=== PATIENT | male | born 1990 | race Caucasian/White ===

== ENCOUNTER 2016-08-18 13:51 | Outpatient (CLI) ==
[2015-01-27 17:55] VITALS: BMI 41.3
[2016-08-18 17:20] LABS: BASOPHILS # (AUTO) 0.1 K/uL (0-0.2); BASOPHILS % (AUTO) 0.7 % (0.0-3.0); EOSINOPHILS # (AUTO) 0.2 K/ul (0.0-0.7); EOSINOPHILS % (AUTO) 2.1 % (0.0-7.0); HEMOGLOBIN 15.4 g/dl (14.0-18.0); IMMATURE GRANULOCYTE % (AUTO) 0.6 % (0.0-5.0); LYMPHOCYTES # (AUTO) 2.2 K/uL (0.60-3.4); LYMPHOCYTES % (AUTO) 24.7 (10.0-50.0); MEAN CORPUSCULAR HEMOGLOBIN 30.3 pg (27.0-31.0); MEAN CORPUSCULAR HGB CONC 33.5 (31.8-35.4); MEAN CORPUSCULAR VOLUME 90.6 fl (80.0-94.0); MONOCYTES # (AUTO) 0.5 K/uL (0.4-2.0); MONOCYTES % (AUTO) 5.3 (0-10); NEUTROPHILS # (AUTO) 6.1 K/ul (2.0-6.9); NEUTROPHILS % (AUTO) 66.6; PLATELET COUNT 231 10^3/uL (140-440); RED BLOOD COUNT 5.08 10^6/ul (4.70-6.10); WHITE BLOOD COUNT 9.08 K/ul (4.2-10.2)
[2016-08-18 17:42] LABS: ALBUMIN 3.9 g/dL (3.4-5.0); ALBUMIN/GLOBULIN RATIO 0.91; ANION GAP 14.4; BILIRUBIN,TOTAL 0.56 mg/dL (0.00-1.20); BUN/CREATININE RATIO 14.45; CALCIUM 9.8 mg/dL (8.2-10.2); CHOL/HDL RATIO 5.2 (4.5-6.4); CREATININE 0.83 mg/dL (0.60-1.10); POTASSIUM 4.4 mmol/L (3.5-5.1); TOTAL PROTEIN 8.2 g/dL (6.4-8.2)
== END 2016-08-18 13:52 | disposition home or self-care (01) ==
LOC: CAR 13:51
PROVIDERS: ATTEND Nurse Practitioner Family
DX: I10 Essential (primary) hypertension (principal); R07.89 Other chest pain; F41.8 Other specified anxiety disorders; J45.909 Unspecified asthma, uncomplicated; F31.9 Bipolar disorder, unspecified
CPT/HCPCS: 36415; 80053; 80061; 85025; 93005; 93010

== ENCOUNTER 2016-09-06 00:58 | Emergency (ER) ==
[2016-09-06 01:16] VITALS: BP 117/82; TEMP 99.3; BMI 42.0
[2016-09-06] MEDS ORDERED: DUONEB NEB STA (01:44)
[2016-09-06] MEDS ORDERED: SOLU-MEDROL 125 MG IVP STA (01:44)
--- NOTE | 2016-09-06 01:52 | ED.PDOC ---
General ED Provider: Dr. DARIEN MISHRA Chief Complaint: Shortness of Air Stated Complaint: Coughing, congested, shortness of breath. brought by EMT Time Seen by Physician: 01:53 Mode of Arrival: Walk-In Information Source: Patient Primary Care Provider: DINORA MOCTEZUMA Nursing and Triage Documentation Reviewed and Agree: Yes Respiratory Complaint Exam - Asthma Complaint/Exam Symptoms Are: Still present Timing: Intermittent Initial Severity: Severe Current Severity: Moderate Character: Reports: Wheezing, Non-productive cough Aggravating: Reports: Weather change, URI Alleviating: Reports: None Associated Signs and Symptoms: Reports: SOA, Chest pain, URI, Rapid breathing. Denies: Fever, Edema, Calf pain, Sinus infection, Labored breathing Related History: Reports: Similar episode Related Surgical History: Reports: None Status Asthmaticus Risk Factors: Reports: None Current Asthma Medication Usage: No Recent Antibiotics: No Respiratory Distress: None Accessory Muscle Use: No Retractions: Not Present Diminished Breath Sounds: Yes Prolonged Expiratory Phase: No Unable to Speak Full Sentences: No Fatigue Present: No Differential Diagnoses: Acute Asthma, COPD Exacerbation, Pneumonia Review of Systems - Review Of Systems Constitutional: Reports: Malaise, Weakness Eyes: Reports: No symptoms Ears, Nose, Mouth, Throat: Reports: No symptoms Respiratory: Reports: Cough, Short of air Cardiac: Reports: Chest pain GI: Reports: No symptoms : Reports: No symptoms Musculoskeletal: Reports: No symptoms Skin: Reports: No symptoms Neurological: Reports: No symptoms Endocrine: Reports: No symptoms Hematologic/Lymphatic: Reports: No symptoms All Other Systems: Reviewed and Negative Past Medical History - Past Medical History Previously Healthy: Yes Endocrine: Reports: None Cardiovascular: Reports: None Respiratory: Reports: Asthma Hematological: Reports: None Gastrointestinal: Reports: None Genitourinary: Reports: None Neuro/Psych: Reports: Depression Musculoskeletal: Reports: None Cancer: Reports: None - Surgical History General Surgical History: Reports: None - Family History Family History: Reports: None - Social History Smoking Status: Former smoker Hx Substance Use: No Alcohol Screening: None - Immunizations Tetanus Shot up to Date: No Physical Exam - Physical Exam Appearance: Ill-appearing, Obese Ill-appearing: Mild Eyes: EOMI ENT: Ears normal, Nose normal, Oropharynx normal Respiratory: Airway patent, Breath sounds clear, Breath sounds equal, Respirations nonlabored Cardiovascular: RRR, Pulses normal, No rub, No murmur GI/: Soft, Nontender, No masses, Bowel sounds normal, No Organomegaly Musculoskeletal: Normal strength, ROM intact, No edema, No calf tenderness Skin: Warm, Dry, Normal color Neurological: Sensation intact, Motor intact, Reflexes intact, Cranial nerves intact, Alert, Oriented Psychiatric: Affect appropriate, Mood appropriate Critical Care Note - Critical Care Note Total Time (mins): 0 Course - Course Hematology/Chemistry: 09/06/16 02:05 09/06/16 02:05 Orders, Labs, Meds: Lab Review 09/06/16 02:05 WBC 11.50 H RBC 5.01 Hgb 15.3 Hct 43.6 MCV 87.0 MCH 30.5 MCHC 35.1 RDW Coeff of Naga 14.1 Plt Count 223 Immature Gran % (Auto) 0.6 Neut % (Auto) 70.6 Lymph % (Auto) 21.7 Bremer % (Auto) 5.1 Eos % (Auto) 1.5 Baso % (Auto) 0.5 Immature Gran # (Auto) 0.1 Neut # 8.1 H Lymph # 2.5 Bremer # 0.6 Eos # 0.2 Baso # 0.1 D-Dimer (Manual) 194.00 Sodium 138 Potassium 3.7 Chloride 104 Carbon Dioxide 23 Anion Gap 14.7 BUN 19 H Creatinine 1.17 H Estimated GFR (MDRD) 74.00 BUN/Creatinine Ratio 16.23 Glucose 126 H Calcium 9.8 Total Bilirubin 0.39 AST 25 ALT 47 Alkaline Phosphatase 105 Total Creatine Kinase 45 Troponin I < 0.0100 Total Protein 8.4 H Albumin 4.0 Globulin 4.4 Albumin/Globulin Ratio 0.91 Orders Category Date Time Status NEBULIZER TREATMENT Stat CARDIO 09/06/16 01:45 Completed CBC W/ AUTO DIFF Stat LAB 09/06/16 02:05 Completed COMPREHENSIVE METABOLIC PANEL Stat LAB 09/06/16 02:05 Completed CREATINE KINASE Stat LAB 09/06/16 02:05 Completed D-DIMER Stat LAB 09/06/16 02:05 Completed TROPONIN I Stat LAB 09/06/16 02:05 Completed Cephalexin [Keflex] MEDS 09/06/16 01:58 Discontinued 500 mg PO ONCE STA Ipratropium/Albuterol Neb [Duoneb] MEDS 09/06/16 01:44 Discontinued 1 vial NEB ONCE STA Methylprednisolone Sod Succ/Pf [Solu-Medrol 125 mg] MEDS 09/06/16 01:44 Discontinued 80 mg IVP ONCE STA CT CHEST W/O CONTRAST Stat RADS 09/06/16 01:44 Completed Medications Discontinued Medications Generic Name Dose Route Start Last Admin Trade Name Jose PRN Reason Stop Dose Admin Albuterol/Ipratropium 1 vial 09/06/16 01:44 09/06/16 02:07 Duoneb NEB 09/06/16 01:45 1 vial ONCE STA Administration Cephalexin 500 mg 09/06/16 01:58 09/06/16 02:04 Keflex PO 09/06/16 01:59 500 mg ONCE STA Administration Methylprednisolone Sodium Succinate 80 mg 09/06/16 01:44 09/06/16 02:01 Solu-Medrol 125 Mg IVP 09/06/16 01:45 80 mg ONCE STA Administration Vital Signs: Temp Pulse Resp BP Pulse Ox 09/06/16 01:01 99.3 F 106 H 22 117/82 97 Departure - Departure Time of Disposition: 01:57 Disposition: HOME SELF-CARE Discharge Problem: Asthma exacerbation Instructions: Bronchospasm (ED) Condition: Stable Pt referred to PMD for follow-up: Yes Additional Instructions: Ventolin HFA 2 puff tid - qid prn avoid smoke keep f/u with [facility]. Prescriptions: Cephalexin [Keflex] 500 mg PO Q12HR #20 capsule Albuterol Sulfate [Ventolin Hfa] 18 gm IH TID #1 hfa.aer.ad Prednisone 10 mg PO BIDWM #14 tablet Allergies/Adverse Reactions: Allergies No Known Allergies Allergy (Verified 09/06/16 01:16) Home Medications: Ambulatory Orders Escitalopram Oxalate [Lexapro] 10 mg PO BEDTIME #30 04/17/16 Guanfacine HCl [Tenex] 0.5 mg PO BID #60 04/17/16 Albuterol Sulfate [Ventolin Hfa] 18 gm IH TID #1 hfa.aer.ad 09/06/16 Cephalexin [Keflex] 500 mg PO Q12HR #20 capsule 09/06/16 Prednisone 10 mg PO BIDWM #14 tablet 09/06/16 Disposition Discussed With: Patient
[2016-09-06] MEDS ORDERED: KEFLEX PO STA (01:58)
[2016-09-06 02:13] LABS: BASOPHILS # (AUTO) 0.1 K/uL (0-0.2); BASOPHILS % (AUTO) 0.5 % (0.0-3.0); EOSINOPHILS # (AUTO) 0.2 K/ul (0.0-0.7); EOSINOPHILS % (AUTO) 1.5 % (0.0-7.0); HEMATOCRIT 43.6 % (42.0-52.0); HEMOGLOBIN 15.3 g/dl (14.0-18.0); IMMATURE GRANULOCYTE % (AUTO) 0.6 % (0.0-5.0); LYMPHOCYTES # (AUTO) 2.5 K/uL (0.60-3.4); LYMPHOCYTES % (AUTO) 21.7 (10.0-50.0); MEAN CORPUSCULAR HEMOGLOBIN 30.5 pg (27.0-31.0); MEAN CORPUSCULAR HGB CONC 35.1 (31.8-35.4); MONOCYTES # (AUTO) 0.6 K/uL (0.4-2.0); MONOCYTES % (AUTO) 5.1 (0-10); NEUTROPHILS # (AUTO) 8.1 K/ul (2.0-6.9); NEUTROPHILS % (AUTO) 70.6; PLATELET COUNT 223 10^3/uL (140-440); RED BLOOD COUNT 5.01 10^6/ul (4.70-6.10)
--- NOTE | 2016-09-06 02:16 | CT ---
EXAM: CT scan thorax without contrast HISTORY: Shortness of breath COMPARISON: None. FINDINGS: Contiguous axial images obtained through the thorax without contrast utilizing 5-mm colli mation. Sagittal and coronal reconstructions were imaged and reviewed.. The thoracic inlet is unre markable. The heart is normal in size without pericardial effusion. Mild dependent atelectasis at the left lung base. There is no evidence of nodularity , infiltrate or effusion. Fatty infiltratio n is seen with the liver with focal fatty sparing adjacent to the gallbladder. IMPRESSION: Minimal dependent density left lung base. Fatty liver. No evidence of infiltrate or effusion.
[2016-09-06 03:19] LABS: ALANINE AMINOTRANSFERASE 47 U/L (12-78); ALBUMIN/GLOBULIN RATIO 0.91; ALKALINE PHOSPHATASE 105 U/L (50-136); ANION GAP 14.7; ASPARTATE AMINO TRANSFERASE 25 U/L (15-37); BILIRUBIN,TOTAL 0.39 mg/dL (0.00-1.20); BLOOD UREA NITROGEN 19 mg/dL (7-18); BUN/CREATININE RATIO 16.23; CALCIUM 9.8 mg/dL (8.2-10.2); CARBON DIOXIDE 23 mmol/L (21-32); CHLORIDE 104 mmol/L (98-107); CREATINE KINASE 45 U/L; CREATININE 1.17 mg/dL (0.60-1.10); GLUCOSE 126 mg/dL (70-100); POTASSIUM 3.7 mmol/L (3.5-5.1); SODIUM 138 mmol/L (136-145); TOTAL PROTEIN 8.4 g/dL (6.4-8.2)
== END 2016-09-06 03:33 | disposition home or self-care (01) ==
LOC: ED 00:58
DX: J45.901 Unspecified asthma with (acute) exacerbation (principal)
CPT/HCPCS: 36415; 80053; 82550; 84484; 85025; 85379; 94640; 96374; 99283

== ENCOUNTER 2016-09-11 15:33 | Outpatient (CLI) | END 2016-09-11 15:34 | disposition home or self-care (01) | LOC: AMBL 15:33 | PROVIDERS: ATTEND Emergency Medicine | DX: S01.112A Laceration without foreign body of left eyelid and periocular area, initial encounter (principal); M54.2 Cervicalgia; M54.9 Dorsalgia, unspecified; V59.9XXA Occupant (driver) (passenger) of pick-up truck or van injured in unspecified traffic accident, initial encounter ==

== ENCOUNTER 2016-12-24 12:32 | Outpatient (CLI) ==
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
== END 2016-12-24 12:33 | disposition home or self-care (01) ==
LOC: RAD 12:32
PROVIDERS: ATTEND Nurse Practitioner Family
DX: S46.012A Strain of muscle(s) and tendon(s) of the rotator cuff of left shoulder, initial encounter (principal)

== ENCOUNTER 2017-03-03 16:29 | Outpatient (CLI) ==
[2017-03-03 16:46] LABS: BASOPHILS # (AUTO) 0.1 K/uL (0-0.2); BASOPHILS % (AUTO) 0.7 % (0.0-3.0); EOSINOPHILS # (AUTO) 0.2 K/ul (0.0-0.7); IMMATURE GRANULOCYTE % (AUTO) 0.4 % (0.0-5.0); LYMPHOCYTES # (AUTO) 2.1 K/uL (0.60-3.4); LYMPHOCYTES % (AUTO) 20.7 (10.0-50.0); MEAN CORPUSCULAR HEMOGLOBIN 30.7 pg (27.0-31.0); MEAN CORPUSCULAR HGB CONC 34.9 (31.8-35.4); MEAN CORPUSCULAR VOLUME 87.9 fl (80.0-94.0); MONOCYTES # (AUTO) 0.5 K/uL (0.4-2.0); MONOCYTES % (AUTO) 4.7 (0-10); NEUTROPHILS # (AUTO) 7.2 K/ul (2.0-6.9); NEUTROPHILS % (AUTO) 71.5; PLATELET COUNT 235 10^3/uL (140-440); RED BLOOD COUNT 4.89 10^6/ul (4.70-6.10); WHITE BLOOD COUNT 10.08 K/ul (4.2-10.2)
[2017-03-03 17:03] LABS: ALBUMIN 3.8 g/dL (3.4-5.0); ALBUMIN/GLOBULIN RATIO 0.84; ANION GAP 13.2; BILIRUBIN,TOTAL 0.55 mg/dL (0.00-1.20); BUN/CREATININE RATIO 11.76; CALCIUM 9.7 mg/dL (8.2-10.2); CREATININE 0.85 mg/dL (0.60-1.10); POTASSIUM 4.2 mmol/L (3.5-5.1); TOTAL PROTEIN 8.3 g/dL (6.4-8.2)
--- NOTE | 2017-03-04 08:10 | DI ---
Exam: Chest two-view HISTORY: Contusion of right frontal wall thorax, initial encounter. Comparison: 12/25/2015. FINDINGS: Two views of the chest demonstrate moderately expanded lungs with no evidence of pneumonia or edema. The heart is normal in size and configuration. The pulmonary vasculature is not congeste d. The skeletal structures are intact. IMPRESSION: No acute cardiopulmonary disease.
--- NOTE | 2017-03-04 08:17 | DI ---
Exam: Right rib series. HISTORY: Contusion of right frontal wall thorax, initial encounter. Findings: Four images of the right ribs are submitted. These are that no acute fracture or dislocat ion. There is no osseous erosion or radiodense foreign body. There is no underlying pneumothorax. The shoulder appears aligned and intact. Impressions: No right rib fracture or dislocation is identified.
== END 2017-03-03 16:30 | disposition home or self-care (01) ==
LOC: RAD 16:29
PROVIDERS: ATTEND Nurse Practitioner Family
DX: S20.211A Contusion of right front wall of thorax, initial encounter (principal); E78.5 Hyperlipidemia, unspecified; F41.8 Other specified anxiety disorders; I10 Essential (primary) hypertension
CPT/HCPCS: 36415; 80053; 80061; 83036; 85025

== ENCOUNTER 2017-04-29 20:15 | Outpatient (CLI) | END 2017-04-29 20:16 | disposition short-term general hospital (02) | LOC: AMBL 20:15 | PROVIDERS: ATTEND Emergency Medicine | DX: R07.9 Chest pain, unspecified (principal); I10 Essential (primary) hypertension ==

== ENCOUNTER 2017-07-09 16:53 | Outpatient (CLI) | END 2017-07-09 16:54 | disposition home or self-care (01) | LOC: LAB 16:53 | PROVIDERS: ATTEND Nurse Practitioner Family | DX: E78.5 Hyperlipidemia, unspecified (principal); F31.9 Bipolar disorder, unspecified; F41.8 Other specified anxiety disorders; I10 Essential (primary) hypertension | CPT/HCPCS: 36415; 80053; 80061; 85025 ==

== ENCOUNTER 2017-07-15 11:30 | Outpatient (CLI) ==
--- NOTE | 2017-07-15 14:02 | DI ---
Exam: Four x-rays of the right ribs. Comparison: 03/03/2017. Reason for exam: Pleurodynia FINDINGS: The right hemithorax is clear without pneumothorax, pleural effusion, or focal consolidati on. The right clavicle is intact. No displaced right-sided rib fractures are seen. Impression: 1. No displaced right-sided rib fractures. 2. The right hemithorax is unremarkable
== END 2017-07-15 11:31 | disposition home or self-care (01) ==
LOC: RAD 11:30
PROVIDERS: ATTEND Family Medicine
DX: R07.81 Pleurodynia (principal); R10.11 Right upper quadrant pain
CPT/HCPCS: 36415; 80053; 85025

== ENCOUNTER 2017-07-16 09:25 | Outpatient (CLI) ==
--- NOTE | 2017-07-16 10:12 | US ---
EXAM: Right upper quadrant abdominal ultrasound. History: Right upper quadrant abdominal pain. Comparison: CT abdomen pelvis 10/03/2012 Technique: Multiple sonographic images through the abdomen were obtained. Color duplex Doppler was used to interrogate vascular flow. Findings: The liver is enlarged. The visualized pancreas demonstrates no gross abnormality. No abdominal ascit es. There is antegrade flow within the main portal vein. The liver is diffusely echogenic. Limited visualization of the right kidney demonstrates no evidence for hydronephrosis. No shadowing gallston es. Gallbladder wall is not thickened. Common bile duct measures 0.5 cm in caliber. 2.5 cm hypoech oic area within the liver adjacent to the gallbladder. Impression: 1. Hepatic steatosis and hepatomegaly. 2. Probable focal fatty sparing within the liver adjacent to the gallbladder.
== END 2017-07-16 09:26 | disposition home or self-care (01) ==
LOC: RAD 09:25
PROVIDERS: ATTEND Family Medicine
DX: R10.11 Right upper quadrant pain (principal)

== ENCOUNTER 2017-11-03 15:26 | Outpatient (CLI) ==
--- NOTE | 2017-11-03 16:09 | DI ---
Exam: Four x-rays of the cervical spine. Comparison: MRI of the cervical spine performed 03/02/2013. Reason for exam: Paresthesia of skin. FINDINGS: Imaging is obtained from the C2 to the C6 vertebral bodies. The C6-C7 and C7-T1 vertebral bodies are not well seen secondary to summation artifact from the patient's shoulders. The preverte bral soft tissues are within normal limits. The dens appears intact on the open-mouth odontoid view. Impression: No obvious fracture or listhesis in the imaged portions of the cervical spine although evaluation is limited by patient body habitus
== END 2017-11-03 15:27 | disposition home or self-care (01) ==
LOC: RAD 15:26
PROVIDERS: ATTEND Physician Assistant
DX: R20.2 Paresthesia of skin (principal)

== ENCOUNTER 2018-02-05 01:25 | Emergency (ER) ==
[2018-02-05 01:35] VITALS: BP 132/80; TEMP 99.3; BMI 43.7
--- NOTE | 2018-02-05 02:16 | ED.PDOC ---
General ED Provider: Dr. DENIS TOBIN Chief Complaint: Non-specific Complaint Stated Complaint: Patient is a 27 year old male who states that he has had bilateral lateral chest wall pains. States that the pain have been there for few years. The intensity or quality has not changed either. Did not know what to take for pain. Time Seen by Physician: 02:13 Mode of Arrival: Walk-In Information Source: Patient Exam Limitations: No limitations Primary Care Provider: CHAU VICK Nursing and Triage Documentation Reviewed and Agree: Yes Does patient meet sepsis criteria?: No If yes, has appropriate treatment been initiated?: No System Inflammatory Response Syndrome: Not Applicable Sepsis Protocol: For patient's 13 years and over: Temp is 96.8 and below OR 101 and greater Pulse >90 BPM Resp >20/minute Acutely Altered Mental Status Are patient's symptoms suggestive of a new infection, such as: -Pneumonia -Skin, Soft Tissue -Endocarditis -UTI -Bone, Joint Infection -Implantable Device -Acute Abdominal Infection -Wound Infection -Meningitis -Blood Stream Catheter Infection -Unknown Review of Systems - Review Of Systems Constitutional: Reports: No symptoms Eyes: Reports: No symptoms Ears, Nose, Mouth, Throat: Reports: No symptoms Respiratory: Reports: No symptoms Cardiac: Reports: No symptoms GI: Reports: No symptoms : Reports: No symptoms Musculoskeletal: Reports: Other (Bilateral chest wall pain ) Skin: Reports: No symptoms Neurological: Reports: No symptoms Endocrine: Reports: No symptoms Hematologic/Lymphatic: Reports: No symptoms All Other Systems: Reviewed and Negative Past Medical History - Past Medical History Previously Healthy: Yes Endocrine: Reports: None Cardiovascular: Reports: None Respiratory: Reports: Asthma Hematological: Reports: None Gastrointestinal: Reports: None Genitourinary: Reports: None Neuro/Psych: Reports: Depression Musculoskeletal: Reports: None Cancer: Reports: None - Surgical History General Surgical History: Reports: None - Family History Family History: Reports: None - Social History Smoking Status: Former smoker Hx Substance Use: No Alcohol Screening: Occasionally - Immunizations Tetanus Shot up to Date: No Physical Exam - Physical Exam Appearance: Well-appearing, Obese Pain Distress: Mild Eyes: ARMIN, EOMI, Conjunctiva clear ENT: Ears normal, Nose normal, Oropharynx normal Neck: Supple Respiratory: Airway patent, Breath sounds clear, Breath sounds equal, Respirations nonlabored Cardiovascular: RRR, Pulses normal, No rub, No murmur GI/: Soft, Nontender, No masses, Bowel sounds normal, No Organomegaly Musculoskeletal: Normal strength (mild chest wall tenderness bilaterally ), ROM intact, No edema, No calf tenderness Skin: Warm, Dry, Normal color Neurological: Sensation intact, Motor intact, Reflexes intact, Cranial nerves intact, Alert, Oriented Psychiatric: Affect appropriate, Mood appropriate Critical Care Note - Critical Care Note Total Time (mins): 0 Course - Course Vital Signs: Temp Pulse Resp BP Pulse Ox 02/05/18 01:29 99.3 F 99 H 24 132/80 98 Departure - Departure Time of Disposition: 02:13 Disposition: HOME SELF-CARE Discharge Problem: Chronic chest wall pain Instructions: Chest Wall Pain (ED) Condition: Good Pt referred to PMD for follow-up: Yes IPMP verified?: No Additional Instructions: Take Motrin 600mg every 6 hours as needed for pain Follow up with the clinic to get US of gallbladder. Allergies/Adverse Reactions: Allergies No Known Allergies Allergy (Verified 02/05/18 01:36) Home Medications: Ambulatory Orders Albuterol Sulfate [Ventolin Hfa] 18 gm IH TID #1 hfa.aer.ad 09/06/16 Guanfacine HCl 1 mg PO BEDTIME 05/01/17 Albuterol Sulfate [Proair Hfa] 8.5 gm IH Q4H PRN 12/30/17 Disposition Discussed With: Patient
== END 2018-02-05 02:35 | disposition home or self-care (01) ==
LOC: ED 01:25
DX: R07.89 Other chest pain (principal); G89.29 Other chronic pain
CPT/HCPCS: 99283

== ENCOUNTER 2018-03-16 15:08 | Outpatient (CLI) | END 2018-03-16 15:26 | disposition short-term general hospital (02) | LOC: AMBL 15:08 | PROVIDERS: ATTEND Emergency Medicine | DX: R53.1 Weakness (principal); R42 Dizziness and giddiness; R55 Syncope and collapse; R00.0 Tachycardia, unspecified ==

== ENCOUNTER 2018-06-26 20:40 | Emergency (ER) ==
[2018-06-26 20:50] VITALS: BP 129/84; TEMP 98.8; BMI 42.9
--- NOTE | 2018-06-26 21:11 | ED.PDOC ---
General ED Provider: Dr. DENIS TOBIN Chief Complaint: Earache Stated Complaint: patient complains of left ear driange but not pain.. wanted to get it checked out. Time Seen by Physician: 21:00 Mode of Arrival: Walk-In Information Source: Patient Exam Limitations: No limitations Primary Care Provider: CHAU VICK Nursing and Triage Documentation Reviewed and Agree: Yes Does patient meet sepsis criteria?: No System Inflammatory Response Syndrome: Not Applicable Sepsis Protocol: For patient's 13 years and over: Temp is 96.8 and below OR 101 and greater Pulse >90 BPM Resp >20/minute Acutely Altered Mental Status Are patient's symptoms suggestive of a new infection, such as: -Pneumonia -Skin, Soft Tissue -Endocarditis -UTI -Bone, Joint Infection -Implantable Device -Acute Abdominal Infection -Wound Infection -Meningitis -Blood Stream Catheter Infection -Unknown Review of Systems - Review Of Systems Constitutional: Reports: No symptoms Eyes: Reports: No symptoms Ears, Nose, Mouth, Throat: Reports: Ear discharge (on the left ) Respiratory: Reports: No symptoms Cardiac: Reports: No symptoms GI: Reports: No symptoms : Reports: No symptoms Musculoskeletal: Reports: No symptoms Skin: Reports: No symptoms Neurological: Reports: No symptoms Endocrine: Reports: No symptoms Hematologic/Lymphatic: Reports: No symptoms All Other Systems: Reviewed and Negative Past Medical History - Past Medical History Previously Healthy: Yes Endocrine: Reports: None Cardiovascular: Reports: None Respiratory: Reports: Asthma Hematological: Reports: None Gastrointestinal: Reports: None Genitourinary: Reports: None Neuro/Psych: Reports: Depression Musculoskeletal: Reports: None Cancer: Reports: None - Surgical History General Surgical History: Reports: None - Family History Family History: Reports: None - Social History Smoking Status: Former smoker Hx Substance Use: No Alcohol Screening: Occasionally - Immunizations Tetanus Shot up to Date: Yes Physical Exam - Physical Exam Appearance: Obese Eyes: ARMIN, EOMI, Conjunctiva clear ENT: Ears normal, Nose normal, Oropharynx normal Respiratory: Airway patent, Breath sounds clear, Breath sounds equal, Respirations nonlabored Cardiovascular: RRR, Pulses normal, No rub, No murmur GI/: Soft, Nontender, No masses, Bowel sounds normal, No Organomegaly Musculoskeletal: Normal strength, ROM intact, No edema, No calf tenderness Skin: Warm, Dry, Normal color Neurological: Sensation intact, Motor intact, Reflexes intact, Cranial nerves intact, Alert, Oriented Psychiatric: Affect appropriate, Mood appropriate Critical Care Note - Critical Care Note Total Time (mins): 0 Course - Course Vital Signs: Temp Pulse Resp BP Pulse Ox 06/26/18 20:41 98.8 F 105 H 20 129/84 97 Departure - Departure Time of Disposition: 21:09 Disposition: HOME SELF-CARE Discharge Problem: Ear problem Instructions: Earache (ED) Condition: Fair Pt referred to PMD for follow-up: Yes IPMP verified?: No Additional Instructions: follow up as needed Allergies/Adverse Reactions: Allergies No Known Allergies Allergy (Verified 06/26/18 20:50) Home Medications: Ambulatory Orders Albuterol Sulfate [Proair Hfa] 8.5 gm IH Q4H PRN 12/30/17 Albuterol Sulfate [Ventolin Hfa] 18 gm IH TID PRN 06/26/18
== END 2018-06-26 21:34 | disposition home or self-care (01) ==
LOC: ED 20:40
DX: H92.02 Otalgia, left ear (principal)
CPT/HCPCS: 99282

== ENCOUNTER 2018-07-19 17:10 | Outpatient (CLI) | END 2018-07-19 17:27 | disposition short-term general hospital (02) | LOC: AMBL 17:10 | PROVIDERS: ATTEND Internal Medicine | DX: R07.9 Chest pain, unspecified (principal); R20.0 Anesthesia of skin ==

== ENCOUNTER 2018-07-22 11:30 | Outpatient (CLI) | END 2018-07-22 11:31 | disposition home or self-care (01) | LOC: CAR 11:30 | PROVIDERS: ATTEND Nurse Practitioner Family | DX: R07.89 Other chest pain (principal) | CPT/HCPCS: 93005; 93010 ==

== ENCOUNTER 2018-08-02 14:40 | Outpatient (CLI) ==
--- NOTE | 2018-08-02 15:31 | DI ---
EXAM: Five views of the lumbar spine. History: Lower back pain. Findings: No acute fracture or subluxation of the lumbar spine. Disc space heights are relatively p reserved. No abnormal calcifications or radiopaque foreign bodies. Moderate colonic stool. Impression: Unremarkable lumbar spine. Moderate colonic stool
--- NOTE | 2018-08-02 15:32 | DI ---
EXAM: Three views of the thoracic spine. History: Thoracic back pain. Findings: No acute fracture or subluxation of the thoracic spine. Disc space heights are preserved. No abnormal calcifications or radiopaque foreign bodies. Impression: Unremarkable radiograph of the thoracic spine
== END 2018-08-02 14:41 | disposition home or self-care (01) ==
LOC: RAD 14:40
PROVIDERS: ATTEND Nurse Practitioner Family
DX: M54.6 Pain in thoracic spine (principal); M54.5 Low back pain

== ENCOUNTER 2018-08-04 13:42 | Outpatient (CLI) ==
--- NOTE | 2018-08-04 15:49 | DI ---
EXAM: There is bilateral eight views HISTORY: Rib pain. FINDINGS: The ribs appear normal. No displaced rib fracture is identified. No bony erosion. Lungs are clear. Heart size mildly prominent. IMPRESSION: 1. No rib deformity or fracture identified.
== END 2018-08-04 13:43 | disposition home or self-care (01) ==
LOC: RAD 13:42
PROVIDERS: ATTEND Nurse Practitioner Family
DX: M54.6 Pain in thoracic spine (principal)

== ENCOUNTER 2018-10-04 20:57 | Emergency (ER) ==
[2018-10-04 21:09] VITALS: BP 128/86; TEMP 99.1; BMI 42.0
--- NOTE | 2018-10-04 21:34 | ED.PDOC ---
General ED Provider: Dr. MICHAEL FOSTER Chief Complaint: Extremity Swelling/Pain Stated Complaint: muscle cramps. Time Seen by Physician: 21:20 Mode of Arrival: Walk-In Information Source: Patient Exam Limitations: No limitations Primary Care Provider: PREM ARDON Nursing and Triage Documentation Reviewed and Agree: Yes Does patient meet sepsis criteria?: No System Inflammatory Response Syndrome: Not Applicable Sepsis Protocol: For patient's 13 years and over: Temp is 96.8 and below OR 101 and greater Pulse >90 BPM Resp >20/minute Acutely Altered Mental Status Are patient's symptoms suggestive of a new infection, such as: -Pneumonia -Skin, Soft Tissue -Endocarditis -UTI -Bone, Joint Infection -Implantable Device -Acute Abdominal Infection -Wound Infection -Meningitis -Blood Stream Catheter Infection -Unknown Musculoskeletal Complaint Exam - Lower Extremity Complaint/Exam Mechanism of Injury: Reports: No known trauma Onset/Duration: during the day Symptoms Are: Resolved Onset of Pain: Reports: Minutes Initial Severity: Moderate Current Severity: None Location: Reports: Diffuse Character: Reports: Aching Alleviating: Reports: Rest Aggravating: Reports: Movement Able to Bear Weight: Yes Related History: Reports: Similar episode DVT Risk Factors: Reports: None Septic Arthritis Risk Factors: Reports: None Related Surgical History: Reports: None NV Bundle Intact Distal to Injury: Yes Marko's Sign Present: No Differential Diagnoses: Contusion, Strain Review of Systems - Review Of Systems Constitutional: Reports: No symptoms Eyes: Reports: No symptoms Ears, Nose, Mouth, Throat: Reports: No symptoms Respiratory: Reports: No symptoms Cardiac: Reports: No symptoms GI: Reports: No symptoms : Reports: No symptoms Musculoskeletal: Reports: Muscle pain, Muscle stiffness Skin: Reports: No symptoms Neurological: Reports: No symptoms Endocrine: Reports: No symptoms Hematologic/Lymphatic: Reports: No symptoms All Other Systems: Reviewed and Negative Past Medical History - Past Medical History Previously Healthy: Yes Endocrine: Reports: None Cardiovascular: Reports: None Respiratory: Reports: Asthma Hematological: Reports: None Gastrointestinal: Reports: None Genitourinary: Reports: None Neuro/Psych: Reports: Depression Musculoskeletal: Reports: None Cancer: Reports: None - Surgical History General Surgical History: Reports: None - Family History Family History: Reports: None - Social History Smoking Status: Former smoker Hx Substance Use: No Alcohol Screening: Occasionally - Immunizations Tetanus Shot up to Date: Yes (2019) Physical Exam - Physical Exam Appearance: Well-appearing Ill-appearing: None Pain Distress: None Eyes: ARMIN ENT: Ears normal Neck: Supple Respiratory: Airway patent Cardiovascular: RRR GI/: Soft Musculoskeletal: Normal strength, ROM intact Skin: Warm, Dry Neurological: Sensation intact Psychiatric: Affect appropriate Critical Care Note - Critical Care Note Total Time (mins): 0 Course - Course Vital Signs: Temp Pulse Resp BP Pulse Ox 10/04/18 21:00 99.1 F 94 H 20 128/86 98 Departure - Departure Time of Disposition: 21:37 Disposition: HOME SELF-CARE Discharge Problem: Muscle cramps Instructions: Potassium Content of Foods List (ED) Condition: Good Pt referred to PMD for follow-up: Yes IPMP verified?: No Additional Instructions: Flexeril 10 mg tab bid prn # 12 Allergies/Adverse Reactions: Allergies No Known Allergies Allergy (Verified 10/04/18 21:09) Home Medications: Ambulatory Orders Albuterol Sulfate [Proair Hfa] 8.5 gm IH Q4H PRN 12/30/17 Albuterol Sulfate [Ventolin Hfa] 18 gm IH TID PRN 06/26/18 Lamotrigine [Lamictal] 150 mg PO DAILY 07/20/18 Disposition Discussed With: Patient
== END 2018-10-04 21:50 | disposition home or self-care (01) ==
LOC: ED 20:57
DX: R25.2 Cramp and spasm (principal)
CPT/HCPCS: 99282

== ENCOUNTER 2019-02-10 21:18 | Outpatient (CLI) | END 2019-02-10 21:36 | disposition short-term general hospital (02) | LOC: AMBL 21:18 | PROVIDERS: ATTEND Emergency Medicine | DX: R07.9 Chest pain, unspecified (principal); R10.13 Epigastric pain; I10 Essential (primary) hypertension; R00.0 Tachycardia, unspecified ==